=== PATIENT | female | born 1930 | race Caucasian/White ===

== ENCOUNTER 2017-09-28 17:10 | Emergency (ER) | payer MEDICARE, BC ==
[2017-09-28] MEDS ORDERED: ClonazePAM 0.5 MG Tab PO ONE (18:07)
[2017-09-28] MEDS ORDERED: cloNIDine 0.1 MG Tab PO ONE (18:08)
--- NOTE | 2017-09-28 18:10 | EDM.PDOC ---
ED HPI GENERAL MEDICAL PROBLEM - General Chief Complaint: Cardiovascular Problem Stated Complaint: RAPID HEARTBEAT Time Seen by Provider: 09/28/17 17:50 Source of Information: Reports: Patient History Limitations: Reports: No Limitations - History of Present Illness INITIAL COMMENTS - FREE TEXT/NARRATIVE: Patient is a 69-year-old female presents ED complaining of rapid heartbeat. Patient states at approximately 4:30 this afternoon started having sensation of a fast heartbeat. States her primary care provider just recently changed her BP medications. She was taking Norvasc 5 mg every day now states changed to amlodipine which generic 5 mg every day. She states normally sensation of fast heartbeat occurs at night while sleeping. States that wakes her up and has sensation of her heart is pounding out of her chest. Had a Holter monitor obtained December 2016 with no concerning findings. She has an appointment with a data virtualization consultant this October at [facility] for further evaluation of these symptoms. Patient states she is anxious and thinks about these symptoms throughout the course the day. She has a multitude of allergies to different types of medications. States she did not receive the side effects with taking the amlodipine is questioning the symptoms she is currently having are related to this medication. With reviewing allergies to all the medications she's listed it appears most are side effects. Currently patient denies any nausea/ vomiting, chest pain, shortmess of breath, abdominal pain, dysuria, increased swelling to her lower extremity, PND, orthopnea. Of note patient stopped taking the Norvasc approximately 1.5 months ago due to the cost. Just recently started taking the amlodipine. - Related Data Allergies Allergy/AdvReac Type Severity Reaction Status Date / Time acetaminophen [From Tylenol] Allergy Chest Pain Verified 10/21/16 18:57 albuterol Allergy Tachycardia Verified 10/21/16 18:57 aspirin Allergy Other Verified 10/21/16 18:57 atorvastatin calcium Allergy Other Verified 10/21/16 18:57 [From Lipitor] avocado Allergy Chest Verified 10/21/16 18:57 Tightness azithromycin [From Zithromax] Allergy Other Verified 10/21/16 18:57 betahistine Allergy Leg Cramps Verified 10/21/16 18:57 ciprofloxacin [From Cipro] Allergy Abdominal Verified 10/21/16 18:57 Pain ciprofloxacin HCl Allergy Abdominal Verified 10/21/16 18:57 [From Cipro] Pain clopidogrel bisulfate Allergy Chest Pain Verified 10/21/16 18:57 [From Plavix] codeine Allergy Other Verified 10/21/16 18:57 coffee (Coffea arabica) Allergy Chest Verified 10/21/16 18:57 [coffee] Tightness digoxin [From Lanoxin] Allergy Other Verified 10/21/16 18:57 diltiazem HCl [From Tiazac] Allergy Headache Verified 10/21/16 18:57 diphenhydramine HCl Allergy Headache Verified 10/21/16 18:57 [From Benadryl] fenofibrate nanocrystallized Allergy Abdominal Verified 10/21/16 18:57 [From Tricor] Pain fenofibrate,micronized Allergy Abdominal Verified 10/21/16 18:57 [From Tricor] Pain ginkgo biloba Allergy Chest Verified 10/21/16 18:57 Tightness ginseng Allergy Chest Verified 10/21/16 18:57 Tightness guaifenesin [From Robitussin] Allergy Tachycardia Verified 10/21/16 18:57 hydrochlorothiazide Allergy Dizziness Verified 10/21/16 18:57 lisinopril [From Zestoretic] Allergy Dizziness Verified 10/21/16 18:57 metoprolol tartrate Allergy Bradycardia Verified 10/21/16 18:57 [From Lopressor] milk Allergy Chest Verified 10/21/16 18:57 Tightness Milk Containing Products Allergy Chest Verified 10/21/16 18:57 Tightness moexipril HCl [From Univasc] Allergy Hypertensio Verified 10/21/16 18:57 n montelukast sodium Allergy Tachycardia Verified 10/21/16 18:57 [From Singulair] mushroom Allergy Chest Verified 10/21/16 18:57 Tightness Penicillins Allergy Other Verified 10/21/16 18:57 simvastatin [From Zocor] Allergy Abdominal Verified 10/21/16 18:57 Pain squash Allergy Chest Verified 10/21/16 18:57 Tightness sulfamethoxazole Allergy Cannot Verified 10/21/16 18:57 [From Bactrim] Remember telithromycin [From Ketek] Allergy Rectal Verified 10/21/16 18:57 Bleeding trimethoprim [From Bactrim] Allergy Cannot Verified 10/21/16 18:57 Remember chammomile Allergy Chest Uncoded 11/01/15 16:49 Tightness citrate calcium Allergy Tachycardia Uncoded 11/01/15 16:41 gold seal Allergy Chest Uncoded 11/01/15 16:49 Tightness tuna Allergy Chest Uncoded 11/01/15 16:49 Tightness Home Meds: Home Meds Fish Oil/[place]-3 Fatty Acids [Fish Oil] 1 each PO BID 09/28/14 [History] Magnesium 250 mg PO BID 09/28/14 [History] amLODIPine [Norvasc] 5 mg PO DAILY 09/28/14 [History] Ascorbic Acid [C Complex] 500 mg PO DAILY 11/01/15 [History] Lutein 6 mg PO DAILY 11/01/15 [History] Ubidecarenone [Co Q-10] 100 mg PO DAILY 11/01/15 [History] Vitamin B Complex 1 each PO DAILY 11/01/15 [History] Levalbuterol Tartrate [Xopenex Hfa] 1 - 2 puff INH DAILY PRN 10/21/16 [History] Past Medical History HEENT History: Reports: Cataract Cardiovascular History: Reports: [place] Respiratory History: Reports: Other (See Below) Other Respiratory History: "lungs get phlegm in them from allergies" - Past Surgical History HEENT Surgical History: Reports: Adenoidectomy, Tonsillectomy GI Surgical History: Reports: Appendectomy, Colonoscopy Social & Family History - Family History Family Medical History: Noncontributory - Tobacco Use Smoking Status *Q: Never Smoker Second Hand Smoke Exposure: No - Caffeine Use Caffeine Use: Reports: None - Alcohol Use Days Per Week of Alcohol Use: 0 - Recreational Drug Use Recreational Drug Use: No ED ROS GENERAL - Review of Systems Review Of Systems: ROS reveals no pertinent complaints other than HPI. ED EXAM, GENERAL - Physical Exam Exam: See Below Exam Limited By: No Limitations General Appearance: Alert, WD/WN, Anxious Eye Exam: Bilateral Eye: PERRL Ears: Hearing Grossly Normal Nose: Normal Inspection Throat/Mouth: Normal Voice, No Airway Compromise Neck: Normal Inspection, Supple Respiratory/Chest: No Respiratory Distress, Lungs Clear, Normal Breath Sounds, No Accessory Muscle Use, Chest Non-Tender Cardiovascular: Normal Peripheral Pulses, Regular Rate, Rhythm, No Murmur Peripheral Pulses: 2+: Radial (L), Radial (R) GI/Abdominal: Normal Bowel Sounds, Soft, Non-Tender, No Organomegaly, No Distention Extremities: Normal Inspection, Normal Range of Motion, Non-Tender, No Pedal Edema, Normal Capillary Refill Neurological: Alert, Oriented, CN II-XII Intact, Normal Cognition, No Motor/ Sensory Deficits Psychiatric: Normal Affect, Normal Mood Skin Exam: Warm, Dry, Intact, Normal Color Course - Vital Signs Last Recorded V/S: Last Vital Signs Temp 96.9 F 09/28/17 17:27 Pulse 63 09/28/17 17:27 Resp 16 09/28/17 17:27 BP 207/78 H 09/28/17 18:39 Pulse Ox 99 09/28/17 17:27 - Orders/Labs/Meds Meds: Medications Discontinued Medications Generic Name Dose Route Start Last Admin Trade Name Yousuf PRN Reason Stop Dose Admin Amlodipine Besylate 5 mg 09/28/17 19:27 Norvasc PO 09/28/17 19:28 ONETIME ONE Clonazepam 0.25 mg 09/28/17 18:07 09/28/17 18:39 Klonopin PO 09/28/17 18:08 0.25 mg ONETIME ONE Administration Clonidine HCl 0.1 mg 09/28/17 18:08 09/28/17 18:39 Catapres PO 09/28/17 18:09 0.1 mg ONETIME ONE Administration - Re-Assessments/Exams Free Text/Narrative Re-Assessment/Exam: On examination patient is quite anxious and worried about her rapid heartbeat. EKG showed sinus rhythm at a rate of [address] changes. Blood pressure on admission to the ED was 204/77 with a heart rate of 59. Ordered Klonopin 0.25 mg by mouth and also clonidine 0.1 mg by mouth. 1924 Patient's blood pressure on reexamination was 193/81. Patient's symptoms have drastically improved with the above therapies. Highly likely we get complete control of her blood pressure since she's been off the Norvasc for almost one month. Will discharge patient home with instructions as documented. She is arranging a ride. Prior to discharge BP 173/80. Departure - Departure Time of Disposition: 19:25 Disposition: Home, Self-Care 01 Condition: Good Clinical Impression: Anxiety Hypertension Qualifiers: Hypertension type: unspecified Qualified Code(s): I10 - Essential (primary) hypertension Instructions: Hypertension, [id number] Referrals: Rashard Mendes MD [Primary Care Provider] - Forms: ED Department Discharge Additional Instructions: As discussed do believe symptoms are related to anxiety. You had a sensation your heart was going fast which on examination in the ED was a normal rate. Blood pressure is quite elevated with examination in the ED. You have been off a calcium channel carlos for almost 1.5 months. Just recently started taking it again. This may take a week or 2 to normalize. Additional medications may be required. You received a antianxiety medication and a medication for your blood pressure while in the E.D. Blood pressure upon discharge was 173/80. In addition you were given amlodipine 5 mg by mouth. Starting tomorrow taking your blood pressure twice daily at the same time keeping a daily log. Please see your PCP this week or first part of next week for was reevaluation. Starting an antianxiety medication and/or increasing your amlodipine may be required. Return to the ED for any new or worsening symptoms.
[2017-09-28 18:40] VITALS: BP 207/78
[2017-09-28] MEDS ORDERED: amLODIPine 5 MG Tab PO ONE (19:27)
== END 2017-09-28 19:50 | disposition home or self-care (01) ==
LOC: JD.ED 17:10
DX: F41.9 Anxiety disorder, unspecified (principal); I10 Essential (primary) hypertension; Z88.8 Allergy status to other drugs, medicaments and biological substances; Z88.2 Allergy status to sulfonamides; Z88.5 Allergy status to narcotic agent; Z91.011 Allergy to milk products; Z88.0 Allergy status to penicillin; Z91.018 Allergy to other foods; Z91.013 Allergy to seafood
CPT/HCPCS: 99284; A9270; 99283

== ENCOUNTER 2017-11-18 16:33 | Emergency (ER) | payer MEDICARE, BC ==
[2017-11-18 16:46] VITALS: BP 161/69
--- NOTE | 2017-11-18 17:23 | EDM.PDOC ---
ED HPI GENERAL MEDICAL PROBLEM - General Chief Complaint: Respiratory Problem Stated Complaint: COUGH,BODY WEAKNESS Time Seen by Provider: 11/18/17 17:00 Source of Information: Reports: Patient History Limitations: Reports: No Limitations - History of Present Illness INITIAL COMMENTS - FREE TEXT/NARRATIVE: Patient is a 87-year-old female who presents to the ED complaining of a 4 hour history of cough, weakness, sinus congestion, and she feels funny. Patient was exposed to a grandson that had viral upper respiratory symptoms with a cough. Patient's cough is productive of clear phlegm only. Patient has had a poor appetite with onset of cough. She denies any chest pain, shortness of breath, fever, abdominal pain, nausea/vomiting, ear pain, sore throat, or any additional complaints. - Related Data Allergies Allergy/AdvReac Type Severity Reaction Status Date / Time acetaminophen [From Tylenol] Allergy Chest Pain Verified 11/18/17 16:43 albuterol Allergy Tachycardia Verified 11/18/17 16:43 aspirin Allergy Other Verified 11/18/17 16:43 atorvastatin calcium Allergy Other Verified 11/18/17 16:43 [From Lipitor] avocado Allergy Chest Verified 11/18/17 16:43 Tightness azithromycin [From Zithromax] Allergy Other Verified 11/18/17 16:43 betahistine Allergy Leg Cramps Verified 11/18/17 16:43 ciprofloxacin [From Cipro] Allergy Abdominal Verified 11/18/17 16:43 Pain clopidogrel bisulfate Allergy Chest Pain Verified 11/18/17 16:43 [From Plavix] codeine Allergy Other Verified 11/18/17 16:43 coffee (Coffea arabica) Allergy Chest Verified 11/18/17 16:43 [coffee] Tightness digoxin [From Lanoxin] Allergy Other Verified 11/18/17 16:43 diltiazem HCl [From Tiazac] Allergy Headache Verified 11/18/17 16:43 diphenhydramine HCl Allergy Headache Verified 11/18/17 16:43 [From Benadryl] fenofibrate nanocrystallized Allergy Abdominal Verified 11/18/17 16:43 [From Tricor] Pain ginkgo biloba Allergy Chest Verified 11/18/17 16:43 Tightness ginseng Allergy Chest Verified 11/18/17 16:43 Tightness guaifenesin [From Robitussin] Allergy Tachycardia Verified 11/18/17 16:43 hydrochlorothiazide Allergy Dizziness Verified 11/18/17 16:43 lisinopril [From Zestoretic] Allergy Dizziness Verified 11/18/17 16:43 metoprolol tartrate Allergy Bradycardia Verified 11/18/17 16:43 [From Lopressor] Milk Containing Products Allergy Chest Verified 11/18/17 16:43 Tightness moexipril HCl [From Univasc] Allergy Hypertensio Verified 11/18/17 16:43 n montelukast sodium Allergy Tachycardia Verified 11/18/17 16:43 [From Singulair] mushroom Allergy Chest Verified 11/18/17 16:43 Tightness Penicillins Allergy Other Verified 11/18/17 16:43 simvastatin [From Zocor] Allergy Abdominal Verified 11/18/17 16:43 Pain squash Allergy Chest Verified 11/18/17 16:43 Tightness sulfamethoxazole Allergy Cannot Verified 11/18/17 16:43 [From Bactrim] Remember telithromycin [From Ketek] Allergy Rectal Verified 11/18/17 16:43 Bleeding trimethoprim [From Bactrim] Allergy Cannot Verified 11/18/17 16:43 Remember chammomile Allergy Chest Uncoded 11/01/15 16:49 Tightness citrate calcium Allergy Tachycardia Uncoded 11/01/15 16:41 gold seal Allergy Chest Uncoded 11/01/15 16:49 Tightness tuna Allergy Chest Uncoded 11/01/15 16:49 Tightness Home Meds: Home Meds Fish Oil/[place]-3 Fatty Acids [Fish Oil] 1 each PO BID 09/28/14 [History] Magnesium 250 mg PO BID 09/28/14 [History] amLODIPine [Norvasc] 5 mg PO DAILY 09/28/14 [History] Ascorbic Acid [C Complex] 500 mg PO DAILY 11/01/15 [History] Lutein 6 mg PO DAILY 11/01/15 [History] Ubidecarenone [Co Q-10] 100 mg PO DAILY 11/01/15 [History] Vitamin B Complex 1 each PO DAILY 11/01/15 [History] Levalbuterol Tartrate [Xopenex Hfa] 1 - 2 puff INH DAILY PRN 10/21/16 [History] Past Medical History HEENT History: Reports: Cataract Cardiovascular History: Reports: [place] Respiratory History: Reports: Other (See Below) Other Respiratory History: "lungs get phlegm in them from allergies" - Past Surgical History HEENT Surgical History: Reports: Adenoidectomy, Tonsillectomy GI Surgical History: Reports: Appendectomy, Colonoscopy Social & Family History - Family History Family Medical History: Noncontributory - Tobacco Use Smoking Status *Q: Never Smoker Second Hand Smoke Exposure: No - Caffeine Use Caffeine Use: Reports: None - Alcohol Use Days Per Week of Alcohol Use: 0 - Recreational Drug Use Recreational Drug Use: No ED ROS GENERAL - Review of Systems Review Of Systems: ROS reveals no pertinent complaints other than HPI. ED EXAM, GENERAL - Physical Exam Exam: See Below Exam Limited By: No Limitations General Appearance: Alert, WD/WN, No Apparent Distress Eye Exam: Bilateral Eye: PERRL Ears: Normal External Exam, Normal Canal, Normal TMs, Hearing Loss Nose: Normal Inspection, Normal Mucosa, No Blood Throat/Mouth: Normal Inspection, Normal Oropharynx, Normal Voice, No Airway Compromise Neck: Normal Inspection, Supple, Non-Tender, Full Range of Motion. No: Lymphadenopathy (L), Lymphadenopathy (R) Respiratory/Chest: No Respiratory Distress, Lungs Clear, Normal Breath Sounds, No Accessory Muscle Use, Chest Non-Tender Cardiovascular: Normal Peripheral Pulses, Regular Rate, Rhythm, No Murmur Peripheral Pulses: 4+: Radial (L), Radial (R) GI/Abdominal: Normal Bowel Sounds, Soft, Non-Tender, No Organomegaly, No Distention Back Exam: Normal Inspection. No: CVA Tenderness (L), CVA Tenderness (R) Extremities: Normal Inspection, Non-Tender, No Pedal Edema, Normal Capillary Refill Neurological: Alert, Oriented, CN II-XII Intact, Normal Cognition, No Motor/ Sensory Deficits Psychiatric: Normal Affect, Normal Mood Skin Exam: Warm, Dry, Intact, Normal Color, No Rash Course - Vital Signs Last Recorded V/S: Last Vital Signs Temp 98.6 F 11/18/17 16:43 Pulse 98 11/18/17 16:43 Resp 18 11/18/17 16:43 BP 161/69 H 11/18/17 16:43 Pulse Ox 96 11/18/17 16:43 - Orders/Labs/Meds Orders: Active Orders 24 hr Category Date Time Status EKG Documentation Completion [RC] STAT Care 11/18/17 17:31 Active Chest 2V [CR] Stat Exams 11/18/17 17:18 Taken Labs: Laboratory Tests 11/18/17 11/18/17 11/18/17 Range/Units 17:55 17:55 18:18 WBC 6.51 (3.98-10.04) K/mm3 RBC 4.41 (3.98-5.22) M/mm3 Hgb 13.5 (11.2-15.7) gm/L Hct 39.2 (34.1-44.9) % MCV 88.9 (79.4-94.8) fl MCH 30.6 (25.6-32.2) pg MCHC 34.4 (32.2-35.5) g/dl RDW Std Deviation 44.0 (36.4-46.3) fL Plt Count 174 L (182-369) K/mm3 MPV 11.2 (9.4-12.3) fl Neut % (Auto) 80.5 H (34.0-71.1) % Lymph % (Auto) 5.2 L (19.3-51.7) % [place] % (Auto) 12.0 (4.7-12.5) % Eos % (Auto) 1.5 (0.7-5.8) Baso % (Auto) 0.6 (0.1-1.2) % Neut # (Auto) 5.24 (1.56-6.13) K/mm3 Lymph # (Auto) 0.34 L (1.18-3.74) K/mm3 [place] # (Auto) 0.78 H (0.24-0.36) K/mm3 Eos # (Auto) 0.10 (0.04-0.36) K/mm3 Baso # (Auto) 0.04 (0.01-0.08) K/mm3 Manual Slide Review Normal smear Sodium 132 L (136-145) mEq/L Potassium 3.6 (3.5-5.1) mEq/L Chloride 96 L (98-107) mEq/L Carbon Dioxide 26 (21-32) mEq/L Anion Gap 13.6 (5-15) BUN 15 (7-18) mg/dL Creatinine 1.0 (0.55-1.02) mg/dL Est Cr Clr Drug Dosing 30.76 mL/min Estimated GFR (MDRD) 52 (>60) mL/min BUN/Creatinine Ratio 15.0 (14-18) Glucose 140 H (83-115) mg/dL Calcium 9.1 (8.5-10.1) mg/dL Total Bilirubin 0.5 (0.2-1.0) mg/dL AST 29 (15-37) U/L ALT 23 (14-59) U/L Alkaline Phosphatase 82 (46-116) U/L C-Reactive Protein 1.3 H* (<1.0) mg/dL Total Protein 7.6 (6.4-8.2) g/dl Albumin 3.7 (3.4-5.0) g/dl Globulin 3.9 gm/dL Albumin/Globulin Ratio 1.0 (1-2) Urine Color Yellow (Yellow) Urine Appearance Clear (Clear) Urine pH 7.5 (5.0-8.0) Ur Specific [place] 1.020 (1.005-1.030) Urine Protein Negative (Negative) Urine Glucose (UA) Negative (Negative) Urine Ketones Negative (Negative) Urine Occult Blood Negative (Negative) Urine Nitrite Negative (Negative) Urine Bilirubin Negative (Negative) Urine Urobilinogen 0.2 (0.2-1.0) Ur Leukocyte Esterase Trace H (Negative) Urine RBC 0-5 (0-5) /hpf Urine WBC 0-5 (0-5) /hpf Ur Epithelial Cells 0-5 (0-5) /hpf Urine Bacteria Occasional (FEW) /hpf Urine Mucus Not seen (FEW) /hpf - Re-Assessments/Exams Free Text/Narrative Re-Assessment/Exam: Chest x-ray reviewed with Dr. Ewing with no acute findings noted. EKG sinus rhythm at a rate of [address] changes noted. Screen for influenza was positive for influenza A. CBC and chemistry panel did not reveal any concerning findings. CRP was mildly elevated. Shared results of the chest x-ray and labs with the patient. Patient refuses prescription for Tamiflu. Patient has numerous allergies/adverse reactions to medications and thus cannot take Tylenol or ibuprofen as well. States she will have to tough it out. Discharge instructions and return precautions discussed with the patient. Departure - Departure Time of Disposition: 18:43 Disposition: Home, Self-Care 01 Condition: Good Clinical Impression: Influenza A - Discharge Information Instructions: Influenza, Adult, [id number] Referrals: PCP,None [Primary Care Provider] - Forms: ED Department Discharge Additional Instructions: Please review the informational pamphlet for influenza. Refrain from contact with the very young, immunocompromised, and very old. Refrain from large groups since this is infectious and will spread rapidly. Follow-up with your primary care provider as needed. Symptoms should resolve in about one week. Return to the ED if you develop any new or worsening symptoms. - My Orders Last 24 Hours: My Active Orders 11/18/17 17:18 Chest 2V [CR] Stat 11/18/17 17:31 EKG Documentation Completion [RC] STAT - Assessment/Plan Last 24 Hours: My Active Orders 11/18/17 17:18 Chest 2V [CR] Stat 11/18/17 17:31 EKG Documentation Completion [RC] STAT
--- NOTE | 2017-11-19 06:30 | CR ---
Chest: Two views of the chest were obtained. Comparison: Prior chest x-ray of 12/29/16. Heart size is normal. Mild tortuosity of the thoracic aorta is seen. Lung markings are slightly increased likely representing mild bronchitis. No alveolar densities of pneumonia are seen. Slight degenerative change is seen within the spine with mild scoliosis. Impression: 1. Mild increased lung markings felt compatible with mild bronchitis. Diagnostic code #3
== END 2017-11-18 18:53 | disposition home or self-care (01) ==
LOC: JD.ED 16:33
DX: J10.1 Influenza due to other identified influenza virus with other respiratory manifestations (principal); I25.2 Old myocardial infarction; Z79.899 Other long term (current) drug therapy; Z88.0 Allergy status to penicillin; Z91.09 Other allergy status, other than to drugs and biological substances; Z91.011 Allergy to milk products; Z88.2 Allergy status to sulfonamides; Z91.018 Allergy to other foods; Z88.6 Allergy status to analgesic agent; Z88.5 Allergy status to narcotic agent; Z88.1 Allergy status to other antibiotic agents; Z88.8 Allergy status to other drugs, medicaments and biological substances
CPT/HCPCS: 36415; 71020; 71020-26; 80053; 81001; 85025; 86140; 87804; 93005; 93010; 99284; 99284-25